=== PATIENT | female | born 1980 | race Caucasian/White ===

== ENCOUNTER 2021-09-21 17:52 | Emergency (ER) | payer OTHER ==
[~2021-09-21] VITALS: Ht 170.2 cm; Wt 86.2 kg
[2021-09-21] MEDS ORDERED: CRESTOR20 MG PO (18:12)
[2021-09-21] MEDS ORDERED: SPIRONOLACTONE25 MG PO (18:12)
[2021-09-21] MEDS ORDERED: NORCO5 PO ×2 (19:04→19:27)
[2021-09-21 19:31] VITALS: BP 132/67
== END 2021-09-21 19:31 | disposition home or self-care (01) ==
LOC: M.ERS 17:52
DX: S52.571A Other intraarticular fracture of lower end of right radius, initial encounter for closed fracture (principal); Z79.899 Other long term (current) drug therapy; Z88.8 Allergy status to other drugs, medicaments and biological substances; Z88.0 Allergy status to penicillin; W19.XXXA Unspecified fall, initial encounter; Y93.89 Activity, other specified; Y92.89 Other specified places as the place of occurrence of the external cause; Y99.8 Other external cause status